=== PATIENT | female | born 1990 | race Two or more races ===

== ENCOUNTER 2023-12-05 07:18 | Emergency (ER) | payer OTHER ==
[~2023-12-05] VITALS: Ht 154.9 cm; Wt 78.2 kg
[2023-12-05 07:25] VITALS: TEMP 97.9
[2023-12-05] MEDS: ONDANSETRON HCL 4 MG/2 ML VIAL IVP ONE (08:00)
[2023-12-05] MEDS: FAMOTIDINE 20 MG/2 ML VIAL IVP ONE (08:00)
[2023-12-05] MEDS: MAG HYDROX/ALUMINUM HYD/SIMETH 30 ML SUSPENSION UDCUP PO ONE (08:00)
[2023-12-05] MEDS: SODIUM CHLORIDE 0.9% 1,000 ML IV ONE (08:01)
[2023-12-05] MEDS: KETOROLAC TROMETHAMINE 30 MG/ML VIAL IVP ONE (08:01)
[2023-12-05 08:13] LABS: BASOPHILS % (AUTO) 0.6 % (0.0-2.0); EOSINOPHILS % (AUTO) 5.1 % (1.0-6.0); HEMATOCRIT 46.5 % (36-46); HEMOGLOBIN 15.6 g/dL (12.0-16.0); LYMPHOCYTES % (AUTO) 34.5 % (22.0-44.0); MEAN CORPUSCULAR HEMOGLOBIN 29.6 pg (26.0-34.0); MEAN CORPUSCULAR HGB CONC 33.6 G/dL (31.0-37.0); MEAN CORPUSCULAR VOLUME 88 fL (80-100); MONOCYTES # (AUTO) 0.4 K/uL (0.1-1.0); NEUTROPHILS % (AUTO) 52.8 % (40.0-70.0); PLATELET COUNT (AUTO) 101 K/uL (150-450); RED BLOOD CELL COUNT(AUTO) 5.28 MIL/uL (4.00-5.20); RED CELL DISTRIBUTION WIDTH 14.1 % (11.5-14.5); WHITE BLOOD COUNT (AUTO) 5.7 K/uL (4.5-11.0)
[2023-12-05 08:28] LABS: ANION GAP 11 mmol/L (8-16); CALCIUM, TOTAL 9.6 mg/dL (8.8-10.5); CARBON DIOXIDE 27 mmol/L (22-29); CHLORIDE 103 mmol/L (98-107); CREATININE 0.84 mg/dL (0.60-1.30); GLOMERULAR FILTR. RATE CALC > 60 mL/min (>60); GLUCOSE,RANDOM 99 mg/dL (70-110); POTASSIUM 3.9 mmol/L (3.5-5.1); SODIUM SERUM 141 mmol/L (136-145); UREA NITROGEN, BLOOD 7 mg/dL (7-18)
[2023-12-05 08:29] LABS: COVID AG,FIA SOURCE NASAL SWAB
[2023-12-05 08:33] LABS: ALANINE AMINOTRANSFERASE 58 U/L (12-78); ALBUMIN 4.1 g/dL (3.4-5.0); ALKALINE PHOSPHATASE 102 U/L (46-116); ASPARTATE AMINOTRANSFERASE 29 U/L (15-37); BILIRUBIN,TOTAL 0.5 mg/dL (0.1-1.0); LIPASE 32 U/L (16-77)
[2023-12-05 08:42] LABS: APPEARANCE,URINE CLEAR (CLEAR); BILIRUBIN,URINE NEGATIVE (NEGATIVE); COLOR,URINE LIGHT YELLOW (YELLOW); GLUCOSE, URINE (UA) NEGATIVE (NEGATIVE); KETONES,URINE NEGATIVE (NEGATIVE); LEUKOCYTE ESTERASE ,URINE NEGATIVE (NEGATIVE); NITRATE,URINE NEGATIVE (NEGATIVE); OCCULT BLOOD,URINE NEGATIVE (NEGATIVE); PROTEIN,URINE NEGATIVE (NEGATIVE); SPECIFIC GRAVITIY, URINE 1.015 (1.003-1.030); UROBILINOGEN,URINE <=1.0 mg/dL (<=1.0)
[2023-12-05] MEDS ORDERED: ACET-3385 PO (08:52)
[2023-12-05] MEDS ORDERED: ONDA-104 PO (08:52)
[2023-12-05 08:57] LABS: SARS-COV2 (COVID) ANTIGEN,FIA Negative (Negative)
[2023-12-05 08:58] LABS: INFLUENZA TYPE A NEGATIVE FOR TYPE A (NEGATIVE); INFLUENZA TYPE B NEGATIVE FOR TYPE B (NEGATIVE)
[2023-12-05 09:40] VITALS: BP 122/61; PULSE 69; RESP 15; O2SAT 97
== END 2023-12-05 10:24 | disposition home or self-care (01) ==
LOC: EMS 07:18
DX: R11.2 Nausea with vomiting, unspecified (principal); R51.9 Headache, unspecified; J45.909 Unspecified asthma, uncomplicated
CPT/HCPCS: 99284; 96374; 96375; 96361; 87426; 80048; 80076; 81003; 83690; 84703; 85025; 87804; 36415; J3490; J1885; J2405; J7030